=== PATIENT | male | born 1970 | race Caucasian/White ===

== ENCOUNTER 2022-06-21 08:56 | Inpatient (IN) | payer OTHER ==
[~2022-06-21] VITALS: Ht 177.8 cm; Wt 113.2 kg
[~2022-06-21 08:56] MED LIST: ALLERCLEAR10 MG PO; ALPR.25 PO; ASCO500 PO; ATOR10 PO; CALCAVITD PO; CEPH500 PO; CHOL10002 PO; CIPR250 PO; CIPR500; CREON DR 36,001 EACH; HYDACE5 PO; LISI5; LORA10 PO; METF500C PO; METO25 PO; METR500; MULVITMIND PO; Metformin HCl1000 MG PO; OSCIMIN SL0.125 MG; OXYACE5T PO; OXYC1TAB11 PO; Roxicodone5 MG PO; TAMS.4ER PO; TOCO1000 PO; VITAMIN C PO
[2022-06-21 09:30] LABS: BASOPHILS ABSOLUTE AUTO 0.04 K/mm3 (0.00-0.23); BASOPHILS PERCENT AUTO 0 % (0-2); EOSINOPHILS ABSOLUTE AUTO 0.28 K/mm3 (0.00-0.68); EOSINOPHILS PERCENT AUTO 2 % (0-6); Hematocrit 44.3 % (37.0-53.0); Hemoglobin 15.2 g/dL (13.5-17.5); IMMATURE GRAN ABSOLUTE AUTO 0.09 K/mm3 (0.00-0.10); IMMATURE GRAN PERCENT AUTO 1 % (0-1); LYMPHOCYTES ABSOLUTE AUTO 5.35 K/mm3 (0.84-5.20); LYMPHOCYTES PERCENT AUTO 38 % (21-46); MONOCYTES ABSOLUTE AUTO 0.91 K/mm3 (0.16-1.47); MONOCYTES PERCENT AUTO 7 % (4-13); Mean Corpuscular HGB 29.3 pg (26.0-34.0); Mean Corpuscular HGB Conc 34.3 g/dL (31.5-36.5); Mean Corpuscular Volume 86 fL (80-100); Mean Platelet Volume 8.8 fL (9.1-12.4); NEUTROPHILS ABSOLUTE AUTO 7.37 K/mm3 (1.96-9.15); NEUTROPHILS PERCENT AUTO 53 % (41-73); Platelet Count 378 K/mm3 (150-400); RDW Coefficient Variation 13.4 % (11.7-14.2); RDW Standard Deviation 42.2 fL (35.1-46.3); Red Blood Cell Count 5.18 M/mm3 (4.30-5.90); White Blood Cell Count 14.04 K/mm3 (4.00-11.30)
[2022-06-21 09:46] LABS: International Normalized Ratio 0.98; Prothrombin Time Results 10.3 Sec (9.7-11.5)
[2022-06-21 09:55] LABS: Albumin, Blood 3.6 g/dL (3.4-5.0); Albumin/Globulin Ratio 0.9 (0.8-1.8); Bilirubin, Total 0.3 mg/dL (0.1-1.0); Bun/Creatinine Ratio 24.2 (12.0-20.0); Calcium, Blood 8.9 mg/dL (8.5-10.1); Creatinine, Blood 0.62 mg/dL (0.60-1.20); Globulin, Blood 4.2 g/dL (2.2-4.0); Potassium, Blood 3.8 mmol/L (3.5-5.5); Total Protein, Blood 7.8 g/dL (6.4-8.2)
[2022-06-21] MEDS ORDERED: ALLEGRA ALLERG180 MG PO (12:10)
[2022-06-21] MEDS ORDERED: INSULIN GL100 UNIT/3 SC (12:13)
[2022-06-21] MEDS ORDERED: GLIP10ER PO (12:14)
[2022-06-21] MEDS ORDERED: ALOGLIPTIN25 M1 PO (12:15)
[2022-06-21] MEDS ORDERED: FENO48 (12:15)
[2022-06-21] MEDS ORDERED: GABA300 PO (12:16)
[2022-06-21] MEDS ORDERED: OXYACE7.5T PO (12:18)
--- NOTE | 2022-06-21 13:41 | NUR ---
Spiritual Care Request Pt. is resting with eyes closed but listening. Spouse is present and welcomes my visit. Pt. is unsettled because of some residual chest pain. Pt. communicates only with non verbal nods. Spouse does the verbal communication. Facilitate a Life review and establish rapport. Pt. displays evidence of being somnilant. Prayed with Pt. and spouse. Spouse verbalizes gratitude for the spiritual care visit.
--- NOTE | 2022-06-21 15:38 | NUR ---
PT AND SPOUSE IN ROOM WITH CHARGE NURSE AND DR SWEENEY. PREVIOUS CONVERSTATIONS WITH HOUSE NURSING LOG GRADER AND CHARGE NURSE WELL. ISSUE AT HAND IS THIS. PT SPOUSE IS UNABLE TO TAKE CARE OF HERSELF WHILE AT FACILITY. PT SPOUSE USING PT TOILET IN ROOM. SPOUSE OF PT IS UNABLE TO WALK MORE THAN A FEW STEPS AND IS A HIGH RISK FOR FALLS. SHE IS ALSO CURRENTLY IN A HOSPITAL WHEEL CHAIR REQUIRING STAFF TO WHEEL HER AROUND NEEDED. PT SPOUSE HAD INTENTIONS OF STAYING THE NIGHT WITH PT IN ROOM. NEITHER PT OR SPOUSE IS UNDERSTANDING NOR DO THEY WANT TO FOLLOW VISITATION RULES. PT SPOUSE IS ALSO USING STAFF FOR FOR HER NEEDS. PT IS NOW ASKING TO LEAVE AGAINST MEDICAL ADVICE, HENCE VISIT FROM DR SWEENEY TO INFORM PT AND SPOUSE OF THE REPROCUSSION IF PT DOES LEAVE.
--- NOTE | 2022-06-21 18:09 | NUR ---
TR BAND OFF AT 1715. DISTAL PULSES PALPABLE. VITALS WNL.
--- NOTE | 2022-06-21 18:12 | NUR ---
END OF SHIFT SUMMARY PT A/O X4. LSCBT. VITALS WNL. TR BAND AREA COVERED WITH TEGADERM AND SHOWING NO SIGNS OF BLEEDING. PT EDUCATED TO NOT PUT PRESSURE ON THAT WRIST AND TO KEEP AWAY FROM WATER. PT SHOWS UNDERSTANDING BY REPEATING EDUCATED MATERIALS. PT IS INDEPENDENT AND ABLE TO AMBULATE TO TOILET IN ROOM WITH STAND BY ASSIST. NO IV'S RUNNING AT THIS TIME.
--- NOTE | 2022-06-21 18:20 | NUR ---
PT CALLING NURSE MULTIPLE TIMES BY CALL LIGHT TO TAKE SPOUSE IN ROOM TO BATHROOM BY WHEELCHAIR. PT AND SPOUSE INFORMED MULTIPLE TIMES THAT THIS IS NOT APPROPIRATE AND WILL NOT BE TOLERATED. PT AND SPOUSE INFORMED THAT STAFF ARE UNABLE TO CARE FOR PT SPOUSE WHILE HERE. SECURITY CALLED AT THIS TIME TO ESCORT PT SPOUSE TO TRANSPORTATION OUTSIDE OF FACILITY.
--- NOTE | 2022-06-21 19:30 | NUR ---
ASSESSMENT/ASSUMED CARE PT SITTING UP IN BED. C/O PRESSURE TO LEFT CHEST WALL 3/10 AND CHRONIC BACK, LEG, AND GENERAL PAIN.PT STATES,"IT IS MUCH BETTER THAN WHEN I CAME IN. AT THAT TIME IT WAS 10/10. NOW IT IS 3/10 AND JUST PRESSURE". PT TO BED MED WITH PERCOCET AT 1999. LUNGS CLEAR ON ROOMAIR. DENIES SOB OR COUGH. HEART RATE REGULAR IN THE 70'S. BP STABLE. MAEW. RIGHT WRIST TR SITE NO BLEEDING NOTED. SMALL AMT OF BRUISING NOTED. BT+ ABD SOFT AND OBESE. VOIDING CLEAR YELLOW URINE. UP AB AARON IN ROOM. MOVING AND TURNING SELF IN BED. IV TO RIGHT AC AND LEFT FOREARM SALINE LOCKED. SITES CLEAR.
[2022-06-22 03:29] LABS: Hemoglobin 14.8 g/dL (13.5-17.5); Mean Corpuscular HGB 29.4 pg (26.0-34.0); Mean Corpuscular HGB Conc 34.4 g/dL (31.5-36.5); Mean Corpuscular Volume 86 fL (80-100); Mean Platelet Volume 8.8 fL (9.1-12.4); Platelet Count 391 K/mm3 (150-400); RDW Coefficient Variation 13.7 % (11.7-14.2); RDW Standard Deviation 42.7 fL (35.1-46.3); Red Blood Cell Count 5.03 M/mm3 (4.30-5.90); White Blood Cell Count 16.59 K/mm3 (4.00-11.30)
[2022-06-22 03:55] LABS: Anion Gap 10 mmol/L (6-16); Blood Urea Nitrogen 16 mg/dL (8-24); Bun/Creatinine Ratio 24.5 (12.0-20.0); CO2, Blood 26 mmol/L (21-32); Calcium, Blood 8.7 mg/dL (8.5-10.1); Chloride, Blood 99 mmol/L (98-108); Cholesterol 106 mg/dL (50-200); Creatinine, Blood 0.65 mg/dL (0.60-1.20); Glomerular Filtration Rate 113 (60-); Glucose, Blood 241 mg/dL (70-99); HDL Cholesterol 35 mg/dL (>39); LDL/HDL RATIO 1.1; Low Density Lipoprotein Chol 40 mg/dL (0-110); Potassium, Blood 3.3 mmol/L (3.5-5.5); Sodium, Blood 135 mmol/L (136-145); Triglycerides 154 mg/dL (30-160); Very Low Density Lipoprot Chol 30 mg/dL (6-32)
--- NOTE | 2022-06-22 06:08 | NUR ---
SHIFT SUMMARY: PT REPORTED PRESSURE IN CHEST SINCE PCI, NOT FULLY RELIEVED BY PERCOCET. PT REPORTS THAT PAIN IS AT A 3 POST PCI COMPARED TO A 9 PRE PCI. PT UP TO BATHROOM PRN WITH STANDY ASSIST. EKG COMPLETED AND IN CHART. RIGHT RADIAL SITE BRUISING, ARM BOARD IN PLACE.
--- NOTE | 2022-06-22 08:39 | NUR ---
ASSUMED CARE OF PT. PT ALERT AND ORIENTED, PLEASANT AND COOPERATIVE WITH CARE. PT DENIES CHEST PAIN, REPORTS "CHEST PRESSURE" THAT IS UNCHANGED WITH INSPIRATION/EXPIRATION. INGOT SUPERVISOR AT BEDSIDE EXPLAINING PLAN OF CARE AND MEDICATION NEEDS, PT STATES UNDERSTANDING. RIGHT RADIAL ACCESS SITE SOFT, SLIGHT TENDERNESS, NO HEMATOMA-DISTAL PULSES WNL. ARMBOARD REMOVED, PT REMINDED TO AVOID LIFTING OR PRESSURE TO RIGHT WRIST, PT STATES UNDERSTANDING. PLAN TO DISCHARGE THIS MORNING. PT UPDATED. VSS. SEE FULL SHIFT ASSESSMENT.
[2022-06-22] MEDS ORDERED: METO25ER PO (09:40)
[2022-06-22] MEDS ORDERED: ASPIR 8181 M1 PO (09:41)
[2022-06-22] MEDS ORDERED: LOSA25 PO (09:42)
[2022-06-22] MEDS ORDERED: ATOR40TA PO (09:42)
[2022-06-22] MEDS ORDERED: JARDIANCE25 MG PO (09:43)
[2022-06-22] MEDS ORDERED: NITR.4SL SL (09:43)
[2022-06-22] MEDS ORDERED: TICA90TA PO (09:43)
[2022-06-22] MEDS ORDERED: POTA10T PO (09:44)
--- NOTE | 2022-06-22 10:49 | NUR ---
IV'S REMOVED, REVIEWED DISCHARGE INFORMATION INCLUDING APPOINTMENTS AND NEW MEDICATIONS. PT STATES UNDERSTANDING. TRANSPORTATION CONTACTED FOR PATIENT ([facility]) AND PT TAKEN TO ADMITTING PER HIS REQUEST SO THAT HE COULD SIT OUTSIDE ON THE [facility]EN[facility]. PT'S CALLED, UPDATED WITH PT'S DISCHARGE.
== END 2022-06-22 10:32 | disposition home or self-care (01) | DRG 247 ==
LOC: ER 08:56 → ICUW 09:15
PROVIDERS: Emergency Medicine; Internal Medicine Cardiovascular Disease; ADMIT Internal Medicine
PROC: 027035Z Dilation of Coronary Artery, One Artery with Two Drug-eluting Intraluminal Devices, Percutaneous Approach (ICD-10-PCS; principal; 2022-06-21)
PROC: 02703ZZ Dilation of Coronary Artery, One Artery, Percutaneous Approach (ICD-10-PCS; 2022-06-21)
PROC: B2111ZZ Fluoroscopy of Multiple Coronary Arteries using Low Osmolar Contrast (ICD-10-PCS; 2022-06-21)
DX: I21.09 ST elevation (STEMI) myocardial infarction involving other coronary artery of anterior wall (principal); F11.20 Opioid dependence, uncomplicated; E11.42 Type 2 diabetes mellitus with diabetic polyneuropathy; G89.29 Other chronic pain; E87.6 Hypokalemia; D72.828 Other elevated white blood cell count; I10 Essential (primary) hypertension; M17.10 Unilateral primary osteoarthritis, unspecified knee; M47.9 Spondylosis, unspecified; Z90.49 Acquired absence of other specified parts of digestive tract; Z98.890 Other specified postprocedural states; Z79.4 Long term (current) use of insulin; Z79.84 Long term (current) use of oral hypoglycemic drugs; Z79.899 Other long term (current) drug therapy; F17.220 Nicotine dependence, chewing tobacco, uncomplicated; E78.5 Hyperlipidemia, unspecified; Z87.442 Personal history of urinary calculi
CPT/HCPCS: 36415; 71045; 76937; 80048; 80053; 80061; 82947; 83036; 83690; 84484; 85025; 85027; 85347; 85610; 85730; 93005; 93010; 93454; 96374; 99152; 99153; 99285-25; A9270; C1725; C1769; C1874; C1887; C8929; C9606; J1644; J1815; J2250; J3010; J7030; J7040; J7050; Q9957; Q9967